=== PATIENT | male | born 1950 | race Asian ===

== ENCOUNTER 2017-04-04 11:35 | Outpatient (CLI) | payer OTHER ==
[2017-04-04 15:25] LABS: POTASSIUM 4.5 mmol/L (3.6-5.2)
== END 2017-04-04 13:05 | disposition home or self-care (01) ==
LOC: LABW 11:35
PROVIDERS: Internal Medicine
DX: E11.9 Type 2 diabetes mellitus without complications (principal); I10 Essential (primary) hypertension; M25.562 Pain in left knee
CPT/HCPCS: 36415; 80053; 80061; 82043; 82570; 83036

== ENCOUNTER 2017-07-30 09:05 | Outpatient (CLI) | payer OTHER | END 2017-07-30 18:56 | disposition home or self-care (01) | LOC: RAD 09:05 → LABW 09:05 | PROVIDERS: Internal Medicine | DX: M25.512 Pain in left shoulder (principal); M79.662 Pain in left lower leg; E11.9 Type 2 diabetes mellitus without complications; I10 Essential (primary) hypertension; R97.20 Elevated prostate specific antigen [PSA] | CPT/HCPCS: 36415; 80053; 83036; 84153 ==

== ENCOUNTER 2018-01-24 07:33 | Outpatient (CLI) | payer OTHER ==
[2018-01-24 09:10] LABS: POTASSIUM 4.5 mmol/L (3.6-5.2)
== END 2018-01-24 22:23 | disposition home or self-care (01) ==
LOC: LABW 07:33
PROVIDERS: Internal Medicine
DX: E11.9 Type 2 diabetes mellitus without complications (principal); I10 Essential (primary) hypertension
CPT/HCPCS: 36415; 80053; 80061; 82043; 82570; 83036

== ENCOUNTER 2018-09-09 10:56 | Outpatient (CLI) | payer OTHER ==
[2018-09-09 11:40] LABS: PLATELET COUNT 176 K/uL (142-355)
[2018-09-09 12:00] LABS: POTASSIUM 4.2 mmol/L (3.6-5.2)
== END 2018-09-09 21:26 | disposition home or self-care (01) ==
LOC: LABW 10:56
PROVIDERS: Internal Medicine
DX: E11.9 Type 2 diabetes mellitus without complications (principal); E78.2 Mixed hyperlipidemia; I10 Essential (primary) hypertension; R53.1 Weakness; R53.81 Other malaise
CPT/HCPCS: 36415; 80053; 80061; 80335; 82043; 82306; 82570; 83036; 84443; 85027

== ENCOUNTER 2018-12-16 16:01 | Outpatient (CLI) | payer OTHER ==
[2018-12-16 16:38] LABS: POTASSIUM 4.5 mmol/L (3.6-5.2)
== END 2018-12-16 19:44 | disposition home or self-care (01) ==
LOC: LABW 16:01
PROVIDERS: Internal Medicine
DX: R79.89 Other specified abnormal findings of blood chemistry (principal)
CPT/HCPCS: 36415; 80048

== ENCOUNTER 2019-03-10 18:24 | Emergency (ER) | payer OTHER ==
[~2019-03-10] VITALS: Ht 167.6 cm; Wt 99.8 kg
[2019-03-10] MEDS ORDERED: CARV6.25 PO (18:50)
[2019-03-10] MEDS ORDERED: VERA120T22 PO (18:50)
[2019-03-10] MEDS ORDERED: ZESTRIL40 MG PO (18:53)
[2019-03-10] MEDS ORDERED: THEOCHRON100 MG PO (18:53)
[2019-03-10] MEDS ORDERED: CLON0.3D TD (18:54)
[2019-03-10] MEDS ORDERED: METF500T PO (18:54)
[2019-03-10] MEDS ORDERED: MONT10TA PO (18:55)
[2019-03-10] MEDS ORDERED: GLIP10TA55 PO (18:55)
[2019-03-10 21:37] LABS: POTASSIUM 4.7 mmol/L (3.6-5.2)
[2019-03-10 22:53] VITALS: BP 144/104; TEMP 98.2
== END 2019-03-10 22:54 | disposition home or self-care (01) ==
LOC: ED 18:24
PROVIDERS: Internal Medicine
DX: R60.9 Edema, unspecified (principal); M79.605 Pain in left leg; I10 Essential (primary) hypertension
CPT/HCPCS: 36415; 80053; 96372; 99283; J1650

== ENCOUNTER 2019-03-11 07:20 | Outpatient (CLI) | payer OTHER ==
[~2019-03-11 07:20] MED LIST: CARV6.25 PO; CLON0.3D TD; GLIP10TA55 PO; METF500T PO; MONT10TA PO; THEOCHRON100 MG PO; VERA120T22 PO; ZESTRIL40 MG PO
== END 2019-03-11 23:25 | disposition home or self-care (01) ==
LOC: US 07:20
DX: R22.42 Localized swelling, mass and lump, left lower limb (principal)

== ENCOUNTER 2019-05-07 07:51 | Outpatient (CLI) | payer OTHER ==
[2019-05-07 08:31] LABS: POTASSIUM 4.2 mmol/L (3.6-5.2)
== END 2019-05-07 20:13 | disposition home or self-care (01) ==
LOC: LABW 07:51
PROVIDERS: Internal Medicine
DX: I10 Essential (primary) hypertension (principal); E78.5 Hyperlipidemia, unspecified; E11.9 Type 2 diabetes mellitus without complications
CPT/HCPCS: 36415; 80053; 80061; 82043; 82570; 83036

== ENCOUNTER 2019-10-29 08:04 | Outpatient (CLI) | payer OTHER ==
[2019-10-29 09:11] LABS: POTASSIUM 4.1 mmol/L (3.6-5.2)
== END 2019-10-29 23:03 | disposition home or self-care (01) ==
LOC: LABW 08:04
PROVIDERS: Internal Medicine
DX: Z00.00 Encounter for general adult medical examination without abnormal findings (principal); I10 Essential (primary) hypertension; E11.9 Type 2 diabetes mellitus without complications
CPT/HCPCS: 36415; 80053; 80061; 81000; 82043; 82570; 83036

== ENCOUNTER 2020-03-21 13:35 | Outpatient (CLI) | payer OTHER | END 2020-03-21 22:07 | disposition home or self-care (01) | LOC: LABW 13:35 | PROVIDERS: Internal Medicine | DX: I10 Essential (primary) hypertension (principal); E11.9 Type 2 diabetes mellitus without complications | CPT/HCPCS: 36415; 80053; 80061; 83036 ==

== ENCOUNTER 2020-09-19 11:28 | Observation (INO) | payer OTHER ==
[~2020-09-19] VITALS: Ht 175.3 cm; Wt 105.8 kg
[2020-09-19] VITALS (8 sets, daily range): BP systolic 103–157; BP diastolic 63–95; TEMP 98.4–99.1; Ht 175.3 cm; Wt 105.8 kg
[2020-09-19 12:20] LABS: PLATELET COUNT 103 K/uL (142-355)
[2020-09-19 12:22] LABS: POTASSIUM 3.9 mmol/L (3.6-5.2); SODIUM 140 mmol/L (136-145)
[2020-09-19] MEDS ORDERED: HYDRALAZINE50 MG PO (16:41)
[2020-09-19] MEDS ORDERED: TAMS0.4C PO (16:41)
[2020-09-19] MEDS ORDERED: VERA240T17 PO (16:42)
[2020-09-20] VITALS: BP 130/78; TEMP 97.4
[2020-09-20 04:00] VITALS: BP 146/91; TEMP 98.2
[2020-09-20 05:44] LABS: PLATELET COUNT 87 K/uL (142-355)
[2020-09-20 06:02] LABS: POTASSIUM 4.2 mmol/L (3.6-5.2)
[2020-09-20 08:00] VITALS: BP 150/90; TEMP 98.2
[2020-09-20] MEDS ORDERED: CEFDINIR300 MG PO (09:22)
[2020-09-20] MEDS ORDERED: ZITHROMAX500 MG PO (09:22)
== END 2020-09-20 15:30 | disposition home or self-care (01) ==
LOC: ED 11:28 → MED/SURG 14:00
PROVIDERS: Emergency Medicine Emergency Medical Services; ADMIT Internal Medicine Endocrinology, Diabetes & Metabolism; ATTEND Internal Medicine Endocrinology, Diabetes & Metabolism
DX: R07.89 Other chest pain (principal); G80.8 Other cerebral palsy; N40.0 Benign prostatic hyperplasia without lower urinary tract symptoms; E86.0 Dehydration; U07.1 COVID-19; E11.22 Type 2 diabetes mellitus with diabetic chronic kidney disease; I12.9 Hypertensive chronic kidney disease with stage 1 through stage 4 chronic kidney disease, or unspecified chronic kidney disease; N18.30 Chronic kidney disease, stage 3 unspecified; R06.02 Shortness of breath
CPT/HCPCS: 36415; 80048; 80053; 80061; 81000; 82948; 83880; 84484; 85007; 85027; 85610; 87502; 87635; 93005; 96360; 96361; 96365; 96372; 96375; 99220; 99284; G0378; J1650; J1940; J2405; J7060; U0003